=== PATIENT | male | born 2000 | race Caucasian/White ===

== ENCOUNTER 2019-07-06 05:04 | Emergency (ER) | payer OTHER, SELFPAY ==
[2019-07-06 05:13] VITALS: BP 183/102; PULSE 114; RESP 18; TEMP 36.7; O2SAT 96; BMI 27.9
--- NOTE | 2019-07-06 05:15 | ED_ITS ---
HPI - Arrhythmia/Palpitations General Chief Complaint: Arrhythmia/Palpitations Stated Complaint: Heart Palpitations tightness cough Time Seen by Provider: 07/06/19 05:15 Source: patient Mode of arrival: Ambulatory Limitations: no limitations History of Present Illness HPI narrative: The patient complains of palpitations. Palpitations started yesterday morning. He is having no chest pain, no dyspnea. He has a recent illness. No URI symptoms, sore throat or cough. He has had no fever or chills. Has no history of cardiac disease. He has no medical problems, he is on no medications. He denies associated abdominal pain. He has no recent travel, he has no leg pain. He has no hemoptysis. He is in the [place]. He is currently minimally working due to the [place] lock-down. He says he is feeling no stres s or anxiety. He is not consuming excessive caffeine. He is not drinking alcohol, he is on no drugs. Review of Systems Review of Systems ROS Unobtainable: All systems reviewed & are unremarkable except as noted in HPI and below Constitutional Constitutional: Denies chills, Denies fever(s), Denies lethargy and Denies weakness Eyes Eyes: Denies change in vision ENT Ears, Nose, Mouth, and Throat: Denies vertigo, Denies dizziness, Denies mouth lesions and Denies neck pain Cardiovascular Cardiovascular: Denies chest pain, Denies irregular heart rhythm, Denies lightheadedness, Reports palpitations, Denies dyspnea and Denies orthopnea Respiratory Respiratory: Denies cough, Denies dyspnea and Denies wheezing Gastrointestinal Gastrointestinal: Denies abdominal pain, Denies diarrhea, Denies nausea and Denies vomiting Musculoskeletal Musculoskeletal: Denies back pain and Denies neck pain Integumentary/Breasts Skin/Breast: Denies erythema and Denies rash Neurologic Neurologic: Denies vertigo, Denies dizziness and Denies weakness Endocrine Endocrine: Reports palpitations Allergic/Immunologic Allergic/Immunologic: Denies wheezing Patient History Medical History (Updated 07/06/19 @ 06:41 by Kade Sutherland MD) No chronic diseases present (Acute) Social History Smoking Status: Current every day smoker Exam Initial Vital Signs Initial Vital Signs: Vital Signs Temperature 98.1 F 07/06/19 05:13 Pulse Rate 114 H 07/06/19 05:13 Respiratory Rate 18 07/06/19 05:13 Blood Pressure 183/102 H 07/06/19 05:13 Pulse Oximetry 96 07/06/19 05:13 Const General: cooperative and well developed Nutritional Appearance: well nourished [facility] Head: normocephalic and atraumatic Face and sinus: sinuses nontender and face symmetric Mouth: oral mucosae normal and moist mucous membranes Throat: posterior oropharynx normal Eyes General: appearance normal, both eyes and all related structures Eyelids: eyelids normal Conjunctivae: conjunctivae normal Sclera: sclerae normal Pupils: PERRL EOM: EOM intact bilaterally Neck Thyroid: thyroid normal Chest Chest: normal inspection of the chest Resp Effort & Inspection: normal respiratory effort and able to speak in complete sentences Auscultation: clear to auscultation bilaterally, no rales, no rhonchi and no wheezes Cardio Rate: regular rate Rhythm: regular rhythm Heart Sounds: S1 normal, S2 normal, no click, no gallops, no murmurs and no rubs Pulses: normal peripheral pulses GI Inspection: non-distended Palpation: soft, no hepatosplenomegaly, No guarding, No pulsatile mass and No tender Auscultation: normal bowel sounds Back/Spine/Pelvis Back: normal to inspection Skin General: no rashes or lesions noted Neuro General: alert, oriented x3, gait normal and no focal motor deficits Speech: speech normal Extrem General: full ROM, no pedal edema and no calf tenderness Psych Appearance: well kempt Mental Status: mental status grossly normal Attitude: cooperative Thought Content: normal Judgment: judgment good Course Course Course Narrative: The patient was tachycardic and hypertensive on arrival. At the time of discharge his heart rate is 70s, his blood pressure is 131 systolic. He denies stress and anxiety. He is not using energy drinks or significant caffeine. He is not taking it significant alcohol. He is not acutely ill. We discussed palpitations. He is advised to follow-up with his own doctor on a routine appointment. Orders Ordered: ED Orders 07/06/19 05:11 EKG-12 Lead Routine 07/06/19 05:24 XR chest 1V Stat 07/06/19 05:45 Basic Metabolic Panel Stat Complete Blood Count AUTO DIFF Stat D Dimer Stat Thyroid Stimulating Hormone Stat Troponin & CK Cardiac Panel Stat Vital Signs Vital signs: Vital Signs - 8 hr 07/06/19 05:13 07/06/19 05:45 07/06/19 06:35 Temperature 98.1 F Pulse Rate 114 H 88 86 Respiratory Rate 18 23 14 Blood Pressure 183/102 H Blood Pressure [Right Arm] 160/89 H 151/93 H Pulse Oximetry 96 96 95 07/06/19 07:06 Temperature Pulse Rate 78 Respiratory Rate 12 Blood Pressure Blood Pressure [Right Arm] 139/94 H Pulse Oximetry 97 MDM - Arrhythmia/Palpitations Lab Data Result diagrams: 07/06/19 05:45 07/06/19 05:45 Labs: Lab Results 07/06/19 07/06/19 07/06/19 Range/Units 05:45 05:45 05:45 WBC 6.6 (4.5-11.0) X10^3/uL RBC 5.09 (4.5-5.9) X10^6/uL Hgb 15.6 (13.5-17.5) g/dL Hct 45.3 (41-53) % MCV 89.0 (80-100) fL MCH 30.6 (26-34) PG MCHC 34.4 (30-36) % RDW 12.8 (11.6-14.8) % Plt Count 196 (150-400) X10^3/uL Neut % (Auto) 48.3 L (50-75) % Lymph % (Auto) 35.3 (25-40) % [place] % (Auto) 8.1 (3-14) % Eos % (Auto) 7.1 H (2-4) % Baso % (Auto) 1.2 (0-2) % Neut # (Auto) 3200 (0708-7170) /uL Lymph # (Auto) 2300 (2397-7340) /uL [place] # (Auto) 500 (0-900) /uL Eos # (Auto) 500 H (0-450) /uL Baso # (Auto) 100 (0-100) /uL D-Dimer < 200 (<230) ng/mL Sodium 137 (137-145) mmol/L Potassium 3.3 L (3.4-5.1) mmol/L Chloride 104 (98-107) mmol/L Carbon Dioxide 26 (22-32) mmol/L BUN 14 (9-20) mg/dL Creatinine 1.05 (0.66-1.25) mg/dL Estimated GFR > 60.0 (>60) mL/min BUN/Creatinine Ratio 13.3 (6-22) Glucose 102 H (70-100) mg/dL Calcium 9.3 (8.4-10.2) mg/dL Total Creatine Kinase 73 (55-170) U/L CK-MB (CK-2) TNP CK-MB (CK-2) Rel Index TNP Troponin I < 0.012 (0.01-0.034) ng/mL TSH (0.47-4.68) uIU/mL 07/06/19 Range/Units 05:45 WBC (4.5-11.0) X10^3/uL RBC (4.5-5.9) X10^6/uL Hgb (13.5-17.5) g/dL Hct (41-53) % MCV (80-100) fL MCH (26-34) PG MCHC (30-36) % RDW (11.6-14.8) % Plt Count (150-400) X10^3/uL Neut % (Auto) (50-75) % Lymph % (Auto) (25-40) % [place] % (Auto) (3-14) % Eos % (Auto) (2-4) % Baso % (Auto) (0-2) % Neut # (Auto) (9689-5980) /uL Lymph # (Auto) (7081-6492) /uL [place] # (Auto) (0-900) /uL Eos # (Auto) (0-450) /uL Baso # (Auto) (0-100) /uL D-Dimer (<230) ng/mL Sodium (137-145) mmol/L Potassium (3.4-5.1) mmol/L Chloride (98-107) mmol/L Carbon Dioxide (22-32) mmol/L BUN (9-20) mg/dL Creatinine (0.66-1.25) mg/dL Estimated GFR (>60) mL/min BUN/Creatinine Ratio (6-22) Glucose (70-100) mg/dL Calcium (8.4-10.2) mg/dL Total Creatine Kinase (55-170) U/L CK-MB (CK-2) CK-MB (CK-2) Rel Index Troponin I (0.01-0.034) ng/mL TSH 4.36 (0.47-4.68) uIU/mL Urine Dip Bedside Urine Glucose Negative Bedside Urine Bilirubin - Negative Bedside Urine Ketone - Negative Urine Specific [place] 1.015 Bedside Urine Occult Blood - Negative Bedside Urine pH 7.0 Bedside Urine Protein - Negative Bedside Urine Urobilinogen - Negative Bedside Urine Nitrite - Negative Bedside Urine Leukocytes - Negative Esterase Imaging Data Chest x-ray: My Impression: No acute findings ECG Data Attestation: I personally reviewed and interpreted this ECG as follows: (Sinus tachycardia rate 105 be p.m.. Normal intervals. No ectopy. No acute ST T wave changes.) Discharge Plan Departure Patient Disposition: Home Clinical Impression: Palpitations Instructions: DI for Palpitations Activity Restrictions/Additional Instructions: Rest, drink plenty of fluids. Be sure you are well hydrated. Avoid caffeine and energy drinks. Return the ER if he of increasing symptoms of palpitations, chest pain, or difficulty breathing. Follow-up with your doctor if you have fever or cough, return here if necessary.
--- NOTE | 2019-07-06 05:24 | DI.RAD.S_ITS ---
PROCEDURE: XR CHEST 1V INDICATIONS: Palpitations TECHNIQUE: One view of the chest was acquired. COMPARISON: None. FINDINGS: Surgical changes and devices: None. Lungs and pleura: Prominent pulmonary interstitium. No focal consolidations. No pleural effusions or pneumothorax. Mediastinum: Mediastinal contours appear normal. Heart size is normal. Bones and chest wall: No suspicious bony lesions. Overlying soft tissues appear unremarkable. IMPRESSION: Prominent pulmonary interstitium. No focal consolidations. Dictated by: Marcelino Minor M.D. on 07/06/2019 at 8:42 Approved by: Marcelino Minor M.D. on 07/06/2019 at 8:43
[2019-07-06 05:45] VITALS: BP 160/89; PULSE 88; RESP 23; O2SAT 96
[2019-07-06 06:01] LABS: Add Manual Diff / Slide Review NO; Basophils Absolute Auto 100 /uL (0-100); Basophils Percent Auto 1.2 % (0-2); Eosinophils Absolute Auto 500 /uL (0-450); Eosinophils Percent Auto 7.1 % (2-4); Hematocrit 45.3 % (41-53); Hemoglobin 15.6 g/dL (13.5-17.5); Lymphocytes Absolute Auto 2300 /uL (1100-4500); Lymphocytes Percent Auto 35.3 % (25-40); Mean Corpuscular HGB Conc 34.4 % (30-36); Mean Corpuscular Hemoglobin 30.6 PG (26-34); Monocytes Absolute Auto 500 /uL (0-900); Monocytes Percent Auto 8.1 % (3-14); Neutrophils Absolute Auto 3200 /uL (1500-7000); Neutrophils Percent Auto 48.3 % (50-75); Platelet Count 196 X10^3/uL (150-400); Red Blood Cell Count 5.09 X10^6/uL (4.5-5.9); Red Cell Distribution Width 12.8 % (11.6-14.8); White Blood Cell Count 6.6 X10^3/uL (4.5-11.0)
[2019-07-06 06:08] LABS: BUN Creatinine Ratio 13.3 (6-22); Blood Urea Nitrogen 14 mg/dL (9-20); Calcium 9.3 mg/dL (8.4-10.2); Carbon Dioxide 26 mmol/L (22-32); Chloride 104 mmol/L (98-107); Creatine Kinase 73 U/L (55-170); Estimated Glomerular Filt Rate > 60.0 mL/min (>60); Glucose 102 mg/dL (70-100); HEMOLYSIS < 15 (0-50); Potassium 3.3 mmol/L (3.4-5.1); Sodium 137 mmol/L (137-145)
[2019-07-06 06:10] LABS: D Dimer < 200 ng/mL (<230)
[2019-07-06 06:20] LABS: Troponin I < 0.012 ng/mL (0.01-0.034)
[2019-07-06 06:35] VITALS: BP 151/93; PULSE 86; RESP 14; O2SAT 95
[2019-07-06 06:56] LABS: Thyroid Stimulating Hormone 4.36 uIU/mL (0.47-4.68)
[2019-07-06 07:06] VITALS: BP 139/94; PULSE 78; RESP 12; O2SAT 97
== END 2019-07-06 07:43 | disposition home or self-care (01) ==
PROVIDERS: Emergency Provider Emergency Medicine
DX: R00.2 Palpitations (principal); I10 Essential (primary) hypertension; R00.0 Tachycardia, unspecified
CPT/HCPCS: 36415; 71045; 80048; 81003; 82550; 84443; 84484; 85025; 85379; 93005; 99284